=== PATIENT | female | born 2000 | race Two or more races ===

== ENCOUNTER 2024-03-29 21:50 | Emergency (ER) | payer MEDICAID, OTHER ==
[~2024-03-29] VITALS: Ht 165.1 cm; Wt 81.1 kg
[2024-03-29 22:07] VITALS: BP 141/71; PULSE 84; RESP 16; TEMP 97.3
[2024-03-30] MEDS ORDERED: HUR60 MT (00:01)
[2024-03-30 00:11] VITALS: O2SAT 95
[2024-03-30] MEDS: KETOROLAC TROMETH 30 MG/ML 1ML VIAL IM ONE (00:17)
== END 2024-03-30 00:42 | disposition home or self-care (01) ==
LOC: ER 21:50 → EDBD 21:50 → ER 03-30 00:42
DX: K08.89 Other specified disorders of teeth and supporting structures (principal); R51.9 Headache, unspecified
CPT/HCPCS: 96372; 99283; J1885